=== PATIENT | female | born 1960 | race Two or more races ===

== ENCOUNTER 2022-03-26 10:34 | Emergency (ER) | payer MEDICAID ==
[~2022-03-26] VITALS: Ht 152.4 cm; Wt 95.3 kg
--- NOTE | 2022-03-26 10:49 | NUR ---
JESSICA Officer Irvin [id number] here for TA
--- NOTE | 2022-03-26 10:57 | NUR ---
C/O LOWER EXRAMITY PAIN
--- NOTE | 2022-03-26 12:15 | NUR ---
pt refused to lay done in garny sitting up on wc i am comfortable at this time
--- NOTE | 2022-03-26 13:28 | NUR ---
SITTING UP ON WC NO PAIN
[2022-03-26 13:30] VITALS: BP 144/75
--- NOTE | 2022-03-26 13:40 | NUR ---
Patient discharged to home in stable condition. Written and verbal after care instructions given. Patient verbalizes understanding of instruction.
== END 2022-03-26 13:41 | disposition home or self-care (01) ==
LOC: ER 11:05
DX: M25.561 Pain in right knee (principal); R51.9 Headache, unspecified; M54.2 Cervicalgia; Z96.651 Presence of right artificial knee joint
CPT/HCPCS: 70450-TC; 72125-TC; 73564-TC; 73590-TC